=== PATIENT | male | born 1950 | race Caucasian/White ===

== ENCOUNTER 2023-07-09 15:38 | Emergency (ER) | payer OTHER ==
[~2023-07-09] VITALS: Ht 170.2 cm; Wt 77.1 kg
[2023-07-09 16:01] VITALS: BP_SYST 152; PULSE 77; RESP 18; TEMP 98.2; O2SAT 96
[2023-07-09] MEDS ORDERED: GLYC-137 PR (16:53)
[2023-07-09 17:37] VITALS: BP_SYST 152; PULSE 77; RESP 18; TEMP 98.2; O2SAT 96
== END 2023-07-09 17:00 | disposition home or self-care (01) ==
LOC: SED 15:38
DX: K59.00 Constipation, unspecified (principal); R10.9 Unspecified abdominal pain; R19.7 Diarrhea, unspecified
CPT/HCPCS: 99282